=== PATIENT | female | born 1995 | race Caucasian/White ===

== ENCOUNTER → 2019-05-31 16:45 | Outpatient (CLI) | payer OTHER, SELFPAY ==
[2019-05-31 17:43] LABS: Influenza A - CEPHEID Flu A NEGATIVE (NEGATIVE); Influenza B - CEPHEID Flu B NEGATIVE (NEGATIVE)
== END ==
PROVIDERS: PCP Physician Assistant Medical; Visit Provider Physician Assistant
DX: R50.9 Fever, unspecified (principal)
CPT/HCPCS: 87502